=== PATIENT | female | born 1960 | race Caucasian/White ===

== ENCOUNTER → 2021-04-11 09:15 | Outpatient (REF) | payer OTHER, SELFPAY | LOC: ANHLAB 09:15 | PROVIDERS: PCP Physician Assistant; Visit Provider Nurse Practitioner | DX: D49.2 Neoplasm of unspecified behavior of bone, soft tissue, and skin (principal) | CPT/HCPCS: 88305 ==

== ENCOUNTER 2021-12-31 10:38 | Emergency (ER) | payer OTHER, SELFPAY ==
--- NOTE | ~2021-12-31 | XR_ITS ---
EXAMINATION: XR tibia fibula RT 2V EXAM DATE: 12/31/2021 11:08 INDICATION: Fell On Ice 12/30/21. Pain Rt Tib/Fib Since. TECHNIQUE: Right tibia/fibula frontal and lateral projections obtained and reviewed. There is no mya or study for comparison. FINDINGS: Right tibial and fibular shafts unremarkable. There are no acute fractures or dislocations identified. There is no subcutaneous gas. The soft tissue is unremarkable. There are no radiopaq ue foreign bodies. IMPRESSION: No acute osseous findings. Reviewed, dictated and finalized at location A. NDS SUPERVISOR IMPRESSION: No acute osseous findings.
--- NOTE | 2021-12-31 10:40 | ED.LOWEXIN ---
HPI - Extremity Injury (Lower) General Chief Complaint: Extremity Injury, Lower Stated Complaint: right lower leg injury Time Seen by Provider: 12/31/21 10:40 Source: patient and RN notes reviewed History of Present Illness HPI Narrative: Patient is a 61-year-old female who presents to the urgent care with complaints of right lower leg injury. Patient states that she fell on her daughter's driveway yesterday morning with her right leg landing fibula face towards the concrete. Patient states that she is having a lot of pain in the hip but is able to ambulate and weight-bear without difficulties. Patient states that the pain in her leg increases more with flexion. Denies of hitting her head or any loss of consciousness. Patient has been using ice and ibuprofen. No other acute complaints. No acute distress noted. Patient read the plan of care. Some parts of this dictation were generated by voice recognition software and may contain typographical and/or grammatical inaccuracies. Related Data Home Medications Medication Instructions Recorded Confirmed estradiol 0.87 gram/actuation 1 pump TRANSDERM DAILY 09/16/19 05/01/21 (0.06%) transdermal gel pump levothyroxine 88 mcg tablet 88 mcg PO DAILY 09/16/19 05/01/21 multivitamin,fd-ohld-[id number] 1 tablet PO DAILY 09/16/19 05/01/21 Allergies Allergy/AdvReac Type Severity Reaction Status Date / Time aspirin Allergy Unknown Hives Verified 12/31/21 10:56 Review of Systems Review of Systems: CONSTITUTIONAL: Denies fever, chills, or sweats. EYES: Denies visual changes, redness, or discharge. ENT: Denies rhinorrhea, congestion, sore throat, or otalgia. CARDIOVASCULAR: Denies chest pain, palpitations, or edema. RESPIRATORY: Denies cough or dyspnea. GASTROINTESTINAL: Denies abdominal pain, nausea, vomiting, or diarrhea. GENITOURINARY: Denies dysuria or hematuria. SKIN: Denies rash or itching. MUSCULOSKELETAL: Reports of right lower leg pain and tenderness NEUROLOGIC: Denies headache, numbness, or weakness. All other systems reviewed are negative, except as documented in HPI. [facility]LY [facility] Past Medical History Medical History (Updated 12/31/21 @ 11:21 by RENA Valdez) DJD (degenerative joint disease) of cervical spine Endometriosis determined by laparoscopy History of migraine headaches Hypertension Hypothyroidism Migraines Primary hypertension Sphincter of Oddi dysfunction Thyroid disorder Surgical History Surgical History (System 12/28/21 @ 16:47 by Lawanda Chung) History of hysterectomy History of laparoscopy History of sphincterotomy of sphincter of Oddi Hx of cholecystectomy Hx of fusion of cervical spine Family History Family History (System 12/28/21 @ 16:47 by Lawanda Chung) Mother Cerebrovascular accident Father Hypertension Acute myocardial infarction Sibling Hypertension Other Family history of cardiovascular disease Social History Social History (System 12/28/21 @ 16:47 by Lawanda Chung) Smoking status: Never smoker Second hand tobacco smoke exposure: No Alcohol intake: current Alcohol use details: rare Substance use: never Substance use type: does not use Gender identity (if verbalized by the patient): Female Comments At the time of my signature, I reviewed and agree with the nursing past medical, surgical, social, and family history. There is no relevant family history pertinent to the patient complaint. Exam Narrative: GENERAL: This is a well-nourished, well-developed patient, in no apparent distress. HEAD: normocephalic, atraumatic. EYES: PERRL. Sclera clear/white. Vision is grossly intact. EARS: External ears normal NOSE: External nose normal with no obvious nasal discharge, nares without redness, no rhinorrhea. THROAT: Mucous membranes moist NECK: Neck supple CARDIOVASCULAR: Regular rate and rhythm without murmurs, gallops, or rubs. RESPIRATORY: Clear to auscultation. Breath
[2021-12-31 10:46] VITALS: BP 151/83; PULSE 94; RESP 18; TEMP 37.1; O2SAT 99
== END 2021-12-31 11:23 | disposition home or self-care (01) ==
PROVIDERS: Emergency Provider Nurse Practitioner Family; PCP Family Medicine
DX: S80.11XA Contusion of right lower leg, initial encounter (principal); W19.XXXA Unspecified fall, initial encounter; M47.812 Spondylosis without myelopathy or radiculopathy, cervical region; N80.9 Endometriosis, unspecified; I10 Essential (primary) hypertension; E03.9 Hypothyroidism, unspecified; E07.9 Disorder of thyroid, unspecified
CPT/HCPCS: 73590; 99213; G0463

== ENCOUNTER 2023-04-25 11:35 | Outpatient (CLI) | payer OTHER, SELFPAY ==
--- NOTE | ~2023-04-25 | MMUS_ITS ---
EXAMINATION: MM diagnostic taz RT w shima, US breast RT complete HISTORY: Upper outer quadrant right breast lump TECHNIQUE: ML, MLO and CC 3-D tomosynthesis images of the right breast were performed and synthetic 2 -D images were generated. CAD analysis was submitted and interpreted. High resolution complete right breast ultrasound examination including all 4 quadrants and subareolar area was performed. COMPARISON: 07/10/2018 bilateral screening mammogram BREAST PARENCHYMAL COMPOSITION: The breasts are heterogeneously dense, which may obscure small masses . FINDINGS: MAMMOGRAPHIC FINDINGS: There is an approximately 2.6 x 2.9 cm mass in the mid to posterior aspect of the upper central right breast. The margins are partially obscured by surrounding heterogeneous fibroglandular stroma. No other suspicious mass is detected. No architectural distortion, skin thickening or retraction is n oted. No malignant calcification. ULTRASOUND: 12:00 5 cm from nipple: There is a 2.1 x 3.1 cm x 3.2 cm sonolucency with through transmission gravity prospecting observer ior enhancement consistent with simple cyst. Some adjacent smaller cysts or ducts are noted. No suspicious solid mass lesion or suspicious shadowing is noted elsewhere in the breast. IMPRESSION: 3.2 cm cyst at 12:00 5 cm from nipple BI-RADS Category 2: Benign finding(s). Reviewed, dictated and finalized at location A. IMPRESSION: 3.2 cm cyst at 12:00 5 cm from nipple BI-RADS Category 2: Benign finding(s).
== END 2023-04-25 11:36 | disposition home or self-care (01) ==
PROVIDERS: PCP Family Medicine; Visit Provider Obstetrics & Gynecology
DX: N63.11 Unspecified lump in the right breast, upper outer quadrant (principal); R92.8 Other abnormal and inconclusive findings on diagnostic imaging of breast
CPT/HCPCS: 76641; 77061; 77065; G0279

== ENCOUNTER 2025-05-20 14:38 | Outpatient (CLI) | payer OTHER, SELFPAY ==
--- NOTE | ~2025-05-20 | US_ITS ---
US thyroid INDICATION: Hypothyroidism. Dysphagia. TECHNIQUE: Real-time sonographic images of the thyroid gland were obtained. COMPARISON: No prior studies for comparison. FINDINGS: The right thyroid lobe measures 2.7 x 0.6 x 0.8 cm. The left thyroid lobe measures 2.3 x 0 .6 x 0.7 cm. There is normal echotexture in the right lobe without discrete mass. In the left lobe th ere is a small oval hyperechoic mass measuring 3 mm which is wider than tall, smoothly marginated wit hout internal calcifications, TR 3. Normal vascular flow is present. IMPRESSION: 1. Atrophic thyroid gland with small 3 mm hyperechoic left thyroid mass, likely benign. Reviewed, dictated and finalized at location B. IMPRESSION: 1. Atrophic thyroid gland with small 3 mm hyperechoic left thyroid mass, likel y benign.
== END 2025-05-20 14:39 | disposition home or self-care (01) ==
PROVIDERS: PCP Nurse Practitioner Family; Visit Provider Nurse Practitioner Family
DX: E03.4 Atrophy of thyroid (acquired) (principal); E07.9 Disorder of thyroid, unspecified
CPT/HCPCS: 76536